=== PATIENT | female | born 1955 | race Caucasian/White ===

== ENCOUNTER 2023-06-30 13:45 | Outpatient (RCR) | payer MEDICARE, SELFPAY ==
--- NOTE | 2023-04-01 14:45 | PT.OIE ---
Current Diagnoses Lymphedema, not elsewhere classified (04/01/23) Visit Care Team Role Provider Type Teresa Espinoza MD Attending Provider Non-Staff Family Provider Primary Care Provider Referring Provider Specialty: Family Practice Address: [address] [place] [address], [phone] Fax: Email: Physical Therapy Initial Evaluation PT-OP-A Visit Information Start: 03/31/23 16:36 Freq: Status: Active Protocol: Document 04/01/23 12:33 [facility] (Rec: 04/01/23 14:01 [facility] [id number]) Out-Patient Physical Therapy Visit Information Visit Information Visit Type Initial Evaluation Visit Start Time 12:31 Visit Stop Time 13:56 Total Visit Minutes 85 Visit Number 1 Evaluation Information Evaluation Date 04/01/23 Precautions Precautions history cancer osteoporosis PT-OP-B Current Condition Start: 03/31/23 16:36 Freq: Status: Active Protocol: Document 04/01/23 12:33 [facility] (Rec: 04/01/23 14:01 [facility] [id number]) Current Condition History of Current Condition Onset Date 2012 Current Complaints right leg lymphedema History of Current Condition Radical hysterectomy , 1 lymph removed, benign in 2012. . Lymphedema occurred pretty much right away but not initially addressed due to chem and radiation. Has been through treatment for lymphedema at [employer] [facility] that was helpful but has been worsening recently. Then went to accupuncture and that helped some as well. Reports back to work on feet more as well as stress and heat during the summer increased her swelling. Due to work schedule has difficulty attending PT sessions but verbalized understanding of how important to do all she can; states she and will follow- through with all PT recommendations and instruction. Feels she needs further PT and is interested in a lymphedema pump. Lymphedema minimal in am , worsens throughout the day. Wears thompson length shorts especially on work days. Heavier compressions not tolerated. Swelling is from knee to groin and lower abdominal area. Did not bring current compression garments and is not currently wearing any; patient reporting she wasn't going to work and she doesn't like to wear if doesn' t feel the need. Prior Treatments and Tests lymphedema treatment as noted above Treatment Goals Patient/Caregiver Goals be able to self-manage lymphedema, prevent complications. Prior Functional Status Baseline Function- ADL's Independent Baseline Function- Mobility Independent Baseline Function- Gait no limitations Baseline Function- Work/School indep Current Functional Impairments (Reported) Functional Limitations- ADL's more difficult with heavy leg Functional Limitations- Mobility/Gait leg becomes heavy and achy Functional Limitations- Work/School increased edema with work. Personal Factors Other Personal Factors That May Effect doesn't like to wear Therapy/Recovery compression PT-OP-C Subjective Start: 03/31/23 16:36 Freq: Status: Active Protocol: Document 04/01/23 12:33 [facility] (Rec: 04/08/23 14:45 [facility] [id number]) Patient Questionnaires Lymphedema Life Impact Score Lymphedema Score 26 OP-PT Pain Assessment Comments Pain Comments denies pain PT-OP-F Manual Assessment Start: 03/31/23 16:36 Freq: Status: Active Protocol: Document 04/01/23 12:33 [facility] (Rec: 04/08/23 14:45 [facility] [id number]) Manual Assessments Soft Tissue Assessment Soft Tissue Mobility Assessment no redness or other discoloration, no skin fibrosis PT-OP-J Posture/Palpation/Skin Start: 03/31/23 16:36 Freq: Status: Active Protocol: Document 04/01/23 12:33 [facility] (Rec: 04/01/23 14:01 [facility] [id number]) Palpation Assessment Location right LE Palpation Findings Edema Palpation Details no palpable fibrosis, no skin color changes or warmth. Skin Assessment Edema Assessment Right Leg Edema Appearance Puffy,Shiny Comments LYmphedema Incisional Assessment Incision Appearance/Comments old scar with fair mobility PT-OP-K Range of Motion Start: 03/31/23 16:36 Freq: Status: Active Protocol: Document 04/01/23 12:33 [facility] (Rec: 04/08/23 14:45 [facility] [id number]) Hip Goniometric Range of Motion Hip kip Hip ROM WFL Yes Knee Goniometric Range of Motion Knee kip Knee ROM WFL Yes PT-OP-N Lymphedema Start: 03/31/23 16:36 Freq: Status: Active Protocol: Document 04/01/23 12:33 [facility] (Rec: 04/01/23 14:01 [facility] [id number]) Lymphedema Measurements Lower Extremity Circumference Measurements Right Affected MT Heads 21 cm Mid-foot 21.3 cm Medial Malleolus 23.8 cm 10 cm From Medial Malleolus 22 cm 20 cm From Medial Malleolus 31.7 cm 30 cm From Medial Malleolus 31.3 cm 40 cm From Medial Malleolus 36.2 cm 50 cm From Medial Malleolus 39 cm 60 cm From Medial Malleolus 46.5 cm Knee Joint 36.2 cm Hip 54.5 cm - hip waist Left Unaffected MT Heads 21.8 cm Mid-foot 22.7 cm Medial Malleolus 23.3 cm 10 cm From Medial Malleolus 22 cm 20 cm From Medial Malleolus 31.2 cm 30 cm From Medial Malleolus 31.4 cm 40 cm From Medial Malleolus 34.4 cm 50 cm From Medial Malleolus 35.2 cm 60 cm From Medial Malleolus 43.5 cm 70 cm From Medial Malleolus 52 cm Knee Joint 34.4 cm Hip 54.1 cm PT-OP-Q Treatments Start: 03/31/23 16:36 Freq: Status: Active Protocol: Document 04/01/23 12:33 [facility] (Rec: 04/01/23 14:01 [facility] [id number]) Lymphedema Treatment Manual Lymphatic Drainage Location for right LE lymphedema Duration 15 Comments instructed using written handout Lymphedema Wrapping Other not indicated at this time Sequential Lymphedema Exercises Location instructed for right LE lymphedema Duration 10 Comments written handout issued Compression Garment Assessment Compression Garment Assessment Details Patient did not bring; instructed to bring all compression garments for evaluation next session; Patient Education Lymphedema Pathology educated using anatomy talent agent Lymphedema Prevention instructed Lymphedema Precautions instructed Compression Garments discussed and educated in options Self Manual Lymphatic Drainage instructed, with demo and patient return demo Sequential Lymphedema Exercises instructed and issued hadout. Other Other Initiated instructed in importance of all 4 components of lymphedema care; skin care , manual lymphatic drainage, compression, lymphedema exercise; given informational folder with written handouts of resources, self-massage, bandaging, exercise. PT-OP-T Assessment and Plan Start: 03/31/23 16:36 Freq: Status: Active Protocol: Document 04/01/23 12:33 [facility] (Rec: 04/01/23 14:01 [facility] [id number]) Physical Therapy Assessment Rehab Potential Rehabilitation Potential Good Evaluation Complexity Number of Personal Factors/Comorbidities 1-2 Number of Body Systems Impaired 3 Clinical Presentation at Evaluation Evolving Impairments Impairments Activity Tolerance,Edema Goals Three Impairment activity intolerance Impairment increase LE edema with standing for work Short Term Goal (STG) Patient to be instructed in self-management techniques to incorporate into her workday to prevent increase in lymphedema during work. STG Duration 05/07/23 Nursing Home Goal (LTG) Patient will be able to stand for full day of work with minimal to no increase in lymphedema LTG Duration 06/30/23 Two Impairment lymphedema life impact scale 22% [employer] Person Goal (LTG) Decrease lymphedema life impact scale to no more than 10% as measure of improved ability to self-manage lymphedema and improved quality of life LTG Duration 06/30/23 One Impairment lymphedema right LE Impairment worsens with standing and activity Short Term Goal (STG) Patient to be instructed in all aspects of lymphedema care to include skin care, self- manual lymphatic drainage, elevation, compression, and exercise. STG Duration 05/07/23 [employer] Person Goal (LTG) Patient lymphedema to stabilize (no increase or decrease greater than 1 cm over the course of 1 week), patient to demonstrate independence and compliance with all aspects of lymphedema care including consistent wearing of appropriate compression garments LTG Duration 06/30/23 Assessment Summary Assessment Patient presents to PT with diagnosis of lymphedema right LE s/p hysterectomy and removal of 1 lymph node due to cancer. Has had previous treatment for lymphedema but has had exacerbation with return to work and it was recommended she seek further care to improve her ability to self-manage and prevent potential complications of lymphedema and to potentially obtain a sequential pneumatic pump for use in the home. I feel patient would benefit highly from the use of a sequential pneumatic pump as a component of her self-care for lymphedema. Initiatated patient education today with patient and both expressing education provided was some new information for them and very helpful. Discussed POC and patient was in agreement. Due to her busy work schedule emphasis will be placed on education of and patient for self- care measures; they appear highly motivated. Physical Therapy Plan Frequency and Duration Frequency of Treatment 6 visits Duration of treatment (weeks) 12 Plan of Care Start Date 04/01/23 Plan of Care End Date 06/30/23 Therapeutic Interventions Therapeutic Interventions Home Exercise Program, Lymphedema Management,Manual Therapy,Patient/Caregiver Education,Self-Care/Home Management,Soft Tissue Mobilization,Taping, Therapeutic Activities, Therapeutic Exercises Modalities Vasopneumatic Devices Next Visit Focus/Plan Next Note Type Treatment Note Next Visit Plan REview lymphedema exercises, MLD, discuss compression and assess patient's current compression garments for fit and appropriateness, Provide MLD. Assist patient in donning appropriate compression and consider bandaging over or layering and problem-solve any donning issues.
--- NOTE | 2023-04-01 14:46 | PT.OPPOC ---
Physical, Occupational & Speech Therapy At [facility] Current Diagnoses Lymphedema, not elsewhere classified (04/01/23) Visit Care Team Role Provider Type Teresa Espinoza MD Attending Provider Non-Staff Family Provider Primary Care Provider Referring Provider Specialty: Family Practice Address: [address] [place] [address], [phone] Fax: Email: Plan Of Care PT-OP-T Assessment and Plan Start: 03/31/23 16:36 Freq: Status: Active Protocol: Document 04/01/23 12:33 [facility] (Rec: 04/01/23 14:01 [facility]AK [id number]) Physical Therapy Assessment Rehab Potential Rehabilitation Potential Good Evaluation Complexity Number of Personal Factors/Comorbidities 1-2 Number of Body Systems Impaired 3 Clinical Presentation at Evaluation Evolving Impairments Impairments Activity Tolerance,Edema Goals Three Impairment activity intolerance Impairment increase LE edema with standing for work Short Term Goal (STG) Patient to be instructed in self-management techniques to incorporate into her workday to prevent increase in lymphedema during work. STG Duration 05/07/23 [facility] Goal (LTG) Patient will be able to stand for full day of work with minimal to no increase in lymphedema LTG Duration 06/30/23 Two Impairment lymphedema life impact scale 22% [facility] Goal (LTG) Decrease lymphedema life impact scale to no more than 10% as measure of improved ability to self-manage lymphedema and improved quality of life LTG Duration 06/30/23 One Impairment lymphedema right LE Impairment worsens with standing and activity Short Term Goal (STG) Patient to be instructed in all aspects of lymphedema care to include skin care, self- manual lymphatic drainage, elevation, compression, and exercise. STG Duration 05/07/23 [facility] Goal (LTG) Patient lymphedema to stabilize (no increase or decrease greater than 1 cm over the course of 1 week), patient to demonstrate independence and compliance with all aspects of lymphedema care including consistent wearing of appropriate compression garments LTG Duration 06/30/23 Assessment Summary Assessment Patient presents to PT with diagnosis of lymphedema right LE s/p hysterectomy and removal of 1 lymph node due to cancer. Has had previous treatment for lymphedema but has had exacerbation with return to work and it was recommended she seek further care to improve her ability to self-manage and prevent potential complications of lymphedema and to potentially obtain a sequential pneumatic pump for use in the home. I feel patient would benefit highly from the use of a sequential pneumatic pump as a component of her self-care for lymphedema. Initiatated patient education today with patient and both expressing education provided was some new information for them and very helpful. Discussed POC and patient was in agreement. Due to her busy work schedule emphasis will be placed on education of and patient for self- care measures; they appear highly motivated. Physical Therapy Plan Frequency and Duration Frequency of Treatment 6 visits Duration of treatment (weeks) 12 Plan of Care Start Date 04/01/23 Plan of Care End Date 06/30/23 Therapeutic Interventions Therapeutic Interventions Home Exercise Program, Lymphedema Management,Manual Therapy,Patient/Caregiver Education,Self-Care/Home Management,Soft Tissue Mobilization,Taping, Therapeutic Activities, Therapeutic Exercises Modalities Vasopneumatic Devices Next Visit Focus/Plan Next Note Type Treatment Note Next Visit Plan REview lymphedema exercises, MLD, discuss compression and assess patient's current compression garments for fit and appropriateness, Provide MLD. Assist patient in donning appropriate compression and consider bandaging over or layering and problem-solve any donning issues. Plan of Care Dates Plan of Care Start Date 04/01/23 Plan of Care End Date 06/30/23 Electronically Signed by: Yaneli Bloom, PT 04/08/23 [id number] If you are in agreement with this Plan of Care, please return a signed and dated copy. I have reviewed this Plan of Care and certify that the skilled therapy services above are required to meet the patient?s needs. Physician Signature Date Printed Name and Credentials Clinical Instructor Signature Printed Name and Credentials
--- NOTE | 2023-04-09 16:10 | PT.OTN ---
Current Diagnoses Lymphedema, not elsewhere classified (04/09/23) Physical Therapy Treatment Note PT-OP-A Visit Information Start: 03/31/23 16:36 Freq: Status: Active Protocol: Document 04/09/23 12:35 [facility] (Rec: 04/09/23 14:02 [facility] [id number]) Out-Patient Physical Therapy Visit Information Visit Information Visit Type Treatment Note Visit Start Time 12:32 Visit Stop Time 14:00 Total Visit Minutes 58 Visit Number 2 Precautions Precautions history cancer osteoporosis PT-OP-B Current Condition Start: 03/31/23 16:36 Freq: Status: Active Protocol: Document 04/09/23 12:35 [facility] (Rec: 04/09/23 14:02 [facility] [id number]) Current Condition History of Current Condition Onset Date 2012 Current Complaints right leg lymphedema History of Current Condition Radical hysterectomy , 1 lymph removed, benign in 2012. . Lymphedema occurred pretty much right away but not initially addressed due to chem and radiation. Has been through treatment for lymphedema at [facility] that was helpful but has been worsening recently. Then went to accupuncture and that helped some as well. Reports back to work on feet more as well as stress and heat during the summer increased her swelling. Due to work schedule has difficulty attending PT sessions but verbalized understanding of how important to do all she can; states she and will follow- through with all PT recommendations and instruction. Feels she needs further PT and is interested in a lymphedema pump. Lymphedema minimal in am , worsens throughout the day. Wears thompson length shorts especially on work days. Heavier compressions not tolerated. Swelling is from knee to groin and lower abdominal area. Did not bring current compression garments and is not currently wearing any; patient reporting she wasn't going to work and she doesn't like to wear if doesn' t feel the need. Prior Treatments and Tests lymphedema treatment as noted above PT-OP-C Subjective Start: 03/31/23 16:36 Freq: Status: Active Protocol: Document 04/09/23 12:35 [facility] (Rec: 04/09/23 16:10 [facility] [id number]) OP-PT Subjective Patient Comments Patient Comments no new c/o. Didn't look yet at options for compression. Has been doing elevation, skin care, sequential lymphedema exercises, and MLD as instructed. PT-OP-F Manual Assessment Start: 03/31/23 16:36 Freq: Status: Active Protocol: Document 04/01/23 12:33 [facility] (Rec: 04/08/23 14:45 [facility] [id number]) Manual Assessments Soft Tissue Assessment Soft Tissue Mobility Assessment no redness or other discoloration, no skin fibrosis PT-OP-J Posture/Palpation/Skin Start: 03/31/23 16:36 Freq: Status: Active Protocol: Document 04/01/23 12:33 [facility] (Rec: 04/01/23 14:01 [facility] [id number]) Palpation Assessment Location right LE Palpation Findings Edema Palpation Details no palpable fibrosis, no skin color changes or warmth. Skin Assessment Edema Assessment Right Leg Edema Appearance Puffy,Shiny Comments LYmphedema Incisional Assessment Incision Appearance/Comments old scar with fair mobility PT-OP-K Range of Motion Start: 03/31/23 16:36 Freq: Status: Active Protocol: Document 04/01/23 12:33 [facility] (Rec: 04/08/23 14:45 [facility] [id number]) Hip Goniometric Range of Motion Hip kip Hip ROM WFL Yes Knee Goniometric Range of Motion Knee kip Knee ROM WFL Yes PT-OP-N Lymphedema Start: 03/31/23 16:36 Freq: Status: Active Protocol: Document 04/09/23 12:35 [facility] (Rec: 04/09/23 14:02 [facility] [id number]) Lymphedema Measurements Lower Extremity Circumference Measurements Right Affected MT Heads 21.6 cm Mid-foot 20.9 cm Medial Malleolus 25.9 cm 10 cm From Medial Malleolus 22.4 cm 20 cm From Medial Malleolus 31.6 cm 30 cm From Medial Malleolus 31.9 cm 40 cm From Medial Malleolus 36.4 cm 50 cm From Medial Malleolus 39 cm 60 cm From Medial Malleolus 45.8 cm 70 cm From Medial Malleolus 51.9 cm Left Unaffected MT Heads 21.7 cm Mid-foot 22.6 cm Medial Malleolus 24.6 cm 10 cm From Medial Malleolus 22 cm 20 cm From Medial Malleolus 31.4 cm 30 cm From Medial Malleolus 33 cm 40 cm From Medial Malleolus 34.8 cm 50 cm From Medial Malleolus 35 cm 60 cm From Medial Malleolus 41.5 cm 70 cm From Medial Malleolus 51.3 cm Knee Joint 34.8 cm - hips 92.2 waist 78.1 PT-OP-Q Treatments Start: 03/31/23 16:36 Freq: Status: Active Protocol: Document 04/09/23 12:35 [facility] (Rec: 04/09/23 16:10 [facility] [id number]) Lymphedema Treatment Manual Lymphatic Drainage Location for right LE lymphedema; proximal groin, trunk, subaxillary, supraclavicula Duration 30 Comments proximal for right LE lymphedema during sequential pneumatic pump Lymphedema Wrapping Body Location right LE Materials compression shorts; Jockey Sequential Lymphedema Exercises Location reviewed Compression Garment Assessment Compression Garment Assessment Details shown options on lymphedemaproducts website, discussed layering, levels of compression, different options for different times of year. Patient Education Lymphedema Pathology prevfiously revfiewd Lymphedema Prevention issued written information Lymphedema Precautions issued written information Compression Garments continued education Self Manual Lymphatic Drainage reviewd Sequential Lymphedema Exercises reviewed PT-OP-T Assessment and Plan Start: 03/31/23 16:36 Freq: Status: Active Protocol: Document 04/09/23 12:35 [facility] (Rec: 04/09/23 14:02 [facility] [id number]) Physical Therapy Assessment Goals Three Impairment activity intolerance Impairment increase LE edema with standing for work Short Term Goal (STG) Patient to be instructed in self-management techniques to incorporate into her workday to prevent increase in lymphedema during work. STG Duration 05/07/23 Custodial Goal (LTG) Patient will be able to stand for full day of work with minimal to no increase in lymphedema LTG Duration 06/30/23 Two Impairment lymphedema life impact scale 22% Custodial Goal (LTG) Decrease lymphedema life impact scale to no more than 10% as measure of improved ability to self-manage lymphedema and improved quality of life LTG Duration 06/30/23 One Impairment lymphedema right LE Impairment worsens with standing and activity Short Term Goal (STG) Patient to be instructed in all aspects of lymphedema care to include skin care, self- manual lymphatic drainage, elevation, compression, and exercise. STG Duration 05/07/23 [facility]ustodial Goal (LTG) Patient lymphedema to stabilize (no increase or decrease greater than 1 cm over the course of 1 week), patient to demonstrate independence and compliance with all aspects of lymphedema care including consistent wearing of appropriate compression garments LTG Duration 06/30/23 Assessment Summary Assessment Patient and both present for session, brought current compression garments for assessment; poor tolerance for Juzo short, better deja for Alka lower compression short though reports beneficial. Discussed possible layering of compression garments, but also that the best compression is the one she can tolerate wearing. Shown website for options of compression garments, discussed options. Trial sequential pneumatic pump with good tolerance and benefit with dec in circumferential measurements. Physical Therapy Plan Frequency and Duration Frequency of Treatment 6 visits Duration of treatment (weeks) 12 Plan of Care Start Date 04/01/23 Plan of Care End Date 06/30/23 Therapeutic Interventions Therapeutic Interventions Home Exercise Program, Lymphedema Management,Manual Therapy,Patient/Caregiver Education,Self-Care/Home Management,Soft Tissue Mobilization,Taping, Therapeutic Activities, Therapeutic Exercises Modalities Vasopneumatic Devices Next Visit Focus/Plan Next Note Type Treatment Note Next Visit Plan REview lymphedema exercises, MLD, discuss compression and assess patient's current compression garments for fit and appropriateness, Provide MLD. Assist patient in donning appropriate compression and consider bandaging over or layering and problem-solve any donning issues.
--- NOTE | 2023-04-15 16:09 | PT.OTN ---
Current Diagnoses Lymphedema, not elsewhere classified (04/15/23) Physical Therapy Treatment Note PT-OP-A Visit Information Start: 03/31/23 16:36 Freq: Status: Active Protocol: Document 04/15/23 12:31 [facility] (Rec: 04/15/23 12:54 [facility] [id number]) Out-Patient Physical Therapy Visit Information Visit Information Visit Type Treatment Note Visit Start Time 12:32 Visit Stop Time 14:00 Total Visit Minutes 88 Visit Number 3 Evaluation Information Evaluation Date 04/01/23 Precautions Precautions history cancer osteoporosis PT-OP-B Current Condition Start: 03/31/23 16:36 Freq: Status: Active Protocol: Document 04/15/23 12:31 [facility] (Rec: 04/15/23 12:54 [facility] [id number]) Current Condition History of Current Condition Onset Date 2012 Current Complaints right leg lymphedema History of Current Condition Radical hysterectomy , 1 lymph removed, benign in 2012. . Lymphedema occurred pretty much right away but not initially addressed due to chem and radiation. Has been through treatment for lymphedema at [facility] that was helpful but has been worsening recently. Then went to accupuncture and that helped some as well. Reports back to work on feet more as well as stress and heat during the summer increased her swelling. Due to work schedule has difficulty attending PT sessions but verbalized understanding of how important to do all she can; states she and will follow- through with all PT recommendations and instruction. Feels she needs further PT and is interested in a lymphedema pump. Lymphedema minimal in am , worsens throughout the day. Wears thompson length shorts especially on work days. Heavier compressions not tolerated. Swelling is from knee to groin and lower abdominal area. Did not bring current compression garments and is not currently wearing any; patient reporting she wasn't going to work and she doesn't like to wear if doesn' t feel the need. Prior Treatments and Tests lymphedema treatment as noted above Treatment Goals Patient/Caregiver Goals be able to self-manage lymphedema, prevent complications. Prior Functional Status Baseline Function- ADL's Independent Baseline Function- Mobility Independent Baseline Function- Gait no limitations Baseline Function- Work/School indep PT-OP-C Subjective Start: 03/31/23 16:36 Freq: Status: Active Protocol: Document 04/15/23 12:31 [facility] (Rec: 04/15/23 12:54 [facility] [id number]) OP-PT Subjective Patient Comments Patient Comments No new c/o. PT-OP-F Manual Assessment Start: 03/31/23 16:36 Freq: Status: Active Protocol: Document 04/01/23 12:33 [facility] (Rec: 04/08/23 14:45 [facility] [id number]) Manual Assessments Soft Tissue Assessment Soft Tissue Mobility Assessment no redness or other discoloration, no skin fibrosis PT-OP-J Posture/Palpation/Skin Start: 03/31/23 16:36 Freq: Status: Active Protocol: Document 04/01/23 12:33 [facility] (Rec: 04/01/23 14:01 [facility] [id number]) Palpation Assessment Location right LE Palpation Findings Edema Palpation Details no palpable fibrosis, no skin color changes or warmth. Skin Assessment Edema Assessment Right Leg Edema Appearance Puffy,Shiny Comments LYmphedema Incisional Assessment Incision Appearance/Comments old scar with fair mobility PT-OP-K Range of Motion Start: 03/31/23 16:36 Freq: Status: Active Protocol: Document 04/01/23 12:33 [facility] (Rec: 04/08/23 14:45 [facility] [id number]) Hip Goniometric Range of Motion Hip kip Hip ROM WFL Yes Knee Goniometric Range of Motion Knee kip Knee ROM WFL Yes PT-OP-N Lymphedema Start: 03/31/23 16:36 Freq: Status: Active Protocol: Document 04/15/23 12:31 [facility] (Rec: 04/15/23 12:54 [facility] [id number]) Lymphedema Measurements Lower Extremity Circumference Measurements Right Affected MT Heads 21 cm Mid-foot 20.5 cm Medial Malleolus 24 cm 10 cm From Medial Malleolus 21.6 cm 20 cm From Medial Malleolus 31.2 cm 30 cm From Medial Malleolus 32.2 cm 40 cm From Medial Malleolus 35.8 cm 50 cm From Medial Malleolus 38.7 cm 60 cm From Medial Malleolus 46.7 cm 70 cm From Medial Malleolus 53.2 cm Knee Joint 35.8 cm Hip 56 cm PT-OP-Q Treatments Start: 03/31/23 16:36 Freq: Status: Active Protocol: Document 04/15/23 12:31 [facility] (Rec: 04/15/23 12:54 [facility] [id number]) Lymphedema Treatment Manual Lymphatic Drainage Location for right LE lymphedema; proximal groin, trunk, subaxillary, supraclavicula Duration 30 Comments proximal for right LE lymphedema during sequential pneumatic pump Lymphedema Wrapping Body Location right LE Materials compression faustos; [place] Patient Education Other viewed LE bandaging video from [facility] together, discussed benefits and need to instruct and do trial. Patient and asked good questions, appeared to understand the need for having all skills to self-manage lymphedema in the home and prevent worsening. Agreed to bandaging instruction next session PT-OP-T Assessment and Plan Start: 03/31/23 16:36 Freq: Status: Active Protocol: Document 04/15/23 12:31 [facility] (Rec: 04/15/23 12:54 [facility] [id number]) Physical Therapy Assessment Goals Three Impairment activity intolerance Impairment increase LE edema with standing for work Short Term Goal (STG) Patient to be instructed in self-management techniques to incorporate into her workday to prevent increase in lymphedema during work. STG Duration 05/07/23 [employer] Goal (LTG) Patient will be able to stand for full day of work with minimal to no increase in lymphedema LTG Duration 06/30/23 Two Impairment lymphedema life impact scale 22% [facility] Goal (LTG) Decrease lymphedema life impact scale to no more than 10% as measure of improved ability to self-manage lymphedema and improved quality of life LTG Duration 06/30/23 One Impairment lymphedema right LE Impairment worsens with standing and activity Short Term Goal (STG) Patient to be instructed in all aspects of lymphedema care to include skin care, self- manual lymphatic drainage, elevation, compression, and exercise. STG Duration 05/07/23 [facility] Goal (LTG) Patient lymphedema to stabilize (no increase or decrease greater than 1 cm over the course of 1 week), patient to demonstrate independence and compliance with all aspects of lymphedema care including consistent wearing of appropriate compression garments LTG Duration 06/30/23 Assessment Summary Assessment Patient did not bring or wear compression today, further instruction in importance of wearing even if doesn't feel like it's a bad day of swelling; stressed how easily lymphedema can worsen and need for consistent wearing of compression. Discussed other compression options, shown online, shown night garment, given swell spot for trial use over the weekend. Decrease circumferential measurements after use of sequential pneumatic pump after proximal MLD prep, Patient education during pump. Physical Therapy Plan Frequency and Duration Frequency of Treatment 6 visits Duration of treatment (weeks) 12 Plan of Care Start Date 04/01/23 Plan of Care End Date 06/30/23 Therapeutic Interventions Therapeutic Interventions Home Exercise Program, Lymphedema Management,Manual Therapy,Patient/Caregiver Education,Self-Care/Home Management,Soft Tissue Mobilization,Taping, Therapeutic Activities, Therapeutic Exercises Modalities Vasopneumatic Devices Next Visit Focus/Plan Next Note Type Treatment Note Next Visit Plan instruct in LE bandaging, continue MLD, use of sequential pneumatic pump, assure compliance with wearing compression or bandaging.
--- NOTE | 2023-05-06 13:13 | PT.OTN ---
Current Diagnoses Lymphedema, not elsewhere classified (05/06/23) Physical Therapy Treatment Note PT-OP-A Visit Information Start: 03/31/23 16:36 Freq: Status: Active Protocol: Document 05/06/23 12:29 [facility] (Rec: 05/06/23 13:13 [facility] [id number]) Out-Patient Physical Therapy Visit Information Visit Information Visit Type Treatment Note Visit Start Time 12:30 Visit Stop Time 14:00 Total Visit Minutes 90 Visit Number 5 Evaluation Information Evaluation Date 04/01/23 Precautions Precautions history cancer osteoporosis PT-OP-B Current Condition Start: 03/31/23 16:36 Freq: Status: Active Protocol: Document 05/06/23 12:29 [facility] (Rec: 05/06/23 13:13 [facility] [id number]) Current Condition History of Current Condition Onset Date 2012 Current Complaints right leg lymphedema History of Current Condition Radical hysterectomy , 1 lymph removed, benign in 2012. . Lymphedema occurred pretty much right away but not initially addressed due to chem and radiation. Has been through treatment for lymphedema at [email or web address] and [facility] that was helpful but has been worsening recently. Then went to accupuncture and that helped some as well. Reports back to work on feet more as well as stress and heat during the summer increased her swelling. Due to work schedule has difficulty attending PT sessions but verbalized understanding of how important to do all she can; states she and will follow- through with all PT recommendations and instruction. Feels she needs further PT and is interested in a lymphedema pump. Lymphedema minimal in am , worsens throughout the day. Wears thompson length shorts especially on work days. Heavier compressions not tolerated. Swelling is from knee to groin and lower abdominal area. Did not bring current compression garments and is not currently wearing any; patient reporting she wasn't going to work and she doesn't like to wear if doesn' t feel the need. Prior Treatments and Tests lymphedema treatment as noted above Treatment Goals Patient/Caregiver Goals be able to self-manage lymphedema, prevent complications. Prior Functional Status Baseline Function- ADL's Independent Baseline Function- Mobility Independent Baseline Function- Gait no limitations Baseline Function- Work/School indep PT-OP-C Subjective Start: 03/31/23 16:36 Freq: Status: Active Protocol: Document 05/06/23 12:29 [facility] (Rec: 05/06/23 13:13 [facility] [id number]) OP-PT Subjective Patient Comments Patient Comments Patient reports wearing her compression shorts daily and has ordered new Juzo bike shorts, not here yet. Wearing compression bandaging at night. Has been elevating , doing MLD, doing exercises, and wearing compression consistently. Compliant to skin care as well with low ph lotion. Still having challenges with keeping lymphedema down. Only kinesiotape was helpful, had a lot of difficulty removing the tape and skin was irritated, doesn't feel she wants to do again due to skin irritation. Very interested in obtaining sequential pneumatic pump to assist with the home management, sees good results with MLD and use of pump in PT. PT-OP-F Manual Assessment Start: 03/31/23 16:36 Freq: Status: Active Protocol: Document 04/01/23 12:33 [facility] (Rec: 04/08/23 14:45 [facility] [id number]) Manual Assessments Soft Tissue Assessment Soft Tissue Mobility Assessment no redness or other discoloration, no skin fibrosis PT-OP-J Posture/Palpation/Skin Start: 03/31/23 16:36 Freq: Status: Active Protocol: Document 04/01/23 12:33 [facility] (Rec: 04/01/23 14:01 [facility] [id number]) Palpation Assessment Location right LE Palpation Findings Edema Palpation Details no palpable fibrosis, no skin color changes or warmth. Skin Assessment Edema Assessment Right Leg Edema Appearance Puffy,Shiny Comments LYmphedema Incisional Assessment Incision Appearance/Comments old scar with fair mobility PT-OP-K Range of Motion Start: 03/31/23 16:36 Freq: Status: Active Protocol: Document 04/01/23 12:33 [facility] (Rec: 04/08/23 14:45 [facility] [id number]) Hip Goniometric Range of Motion Hip kip Hip ROM WFL Yes Knee Goniometric Range of Motion Knee kip Knee ROM WFL Yes PT-OP-N Lymphedema Start: 03/31/23 16:36 Freq: Status: Active Protocol: Document 05/06/23 12:29 [facility] (Rec: 05/06/23 13:13 [facility] [id number]) Lymphedema Measurements Lower Extremity Circumference Measurements Right Affected MT Heads 21 cm Mid-foot 20 cm Medial Malleolus 23 cm 10 cm From Medial Malleolus 22.3 cm 20 cm From Medial Malleolus 31.3 cm 30 cm From Medial Malleolus 31.8 cm 40 cm From Medial Malleolus 35.3 cm 50 cm From Medial Malleolus 38.9 cm 60 cm From Medial Malleolus 46.6 cm 70 cm From Medial Malleolus 53.8 cm Knee Joint 35.3 cm Hip 59.3 cm PT-OP-Q Treatments Start: 03/31/23 16:36 Freq: Status: Active Protocol: Document 05/06/23 12:29 [facility] (Rec: 05/06/23 13:13 [facility] [id number]) Lymphedema Treatment Manual Lymphatic Drainage Location for right LE lymphedema; proximal groin, trunk, subaxillary, supraclavicula Duration 30 Comments proximal for right LE lymphedema during sequential pneumatic pump Lymphedema Wrapping Body Location right LE Materials Artiflex, Com[employer] knee to groin, instructed patient and ; review with patient and Sequential Lymphedema Exercises Location HEP Patient Education Lymphedema Prevention review Lymphedema Precautions review Compression Garments review Self Manual Lymphatic Drainage review Sequential Lymphedema Exercises review PT-OP-T Assessment and Plan Start: 03/31/23 16:36 Freq: Status: Active Protocol: Document 05/06/23 12:29 [facility] (Rec: 05/06/23 13:13 [facility] [id number]) Physical Therapy Assessment Goals Three Impairment activity intolerance Impairment increase LE edema with standing for work Short Term Goal (STG) Patient to be instructed in self-management techniques to incorporate into her workday to prevent increase in lymphedema during work. STG Duration goal met Half-Way Goal (LTG) Patient will be able to stand for full day of work with minimal to no increase in lymphedema 05/06/23: partially met; still some increase by the end of work day or after doing household tasks while on feet. LTG Duration 06/30/23 Two Impairment lymphedema life impact scale 22% Half-Way Goal (LTG) Decrease lymphedema life impact scale to no more than 10% as measure of improved ability to self-manage lymphedema and improved quality of life 05/06/23: good goal progress, decreased to 14% LTG Duration 06/30/23 One Impairment lymphedema right LE Impairment worsens with standing and activity Short Term Goal (STG) Patient to be instructed in all aspects of lymphedema care to include skin care, self- manual lymphatic drainage, elevation, compression, and exercise. 05/06/23: goal met STG Duration 05/07/23 Half-Way Goal (LTG) Patient lymphedema to stabilize (no increase or decrease greater than 1 cm over the course of 1 week), patient to demonstrate independence and compliance with all aspects of lymphedema care including consistent wearing of appropriate compression garments 05/06/23 05/06/23: good goal progress; patient highly compliant with all aspects of lymphedema management. Has ordered new compression bike shorts LTG Duration 06/30/23 Assessment Summary Assessment Patient has been seen for over 30 days of conservative treatment for right LE lymphedema with onset after radical hysterectomy due to cancer. Patient highly compliant to all aspects of lymphedema care with the assistance of her . Compliant to skin care, manual lymphatic drainage, lymphedema exercises, elevation, wearing compression garment during day and bandaging at night Despite her compliance continues to have challenges with managing her lymphedema in her right LE . Feel she would benefit highy from the use of a sequential pneumatic pump to assist with home management and prevent complications such as Physical Therapy Plan Frequency and Duration Frequency of Treatment 6 visits Duration of treatment (weeks) 12 Plan of Care Start Date 04/01/23 Plan of Care End Date 06/30/23 Therapeutic Interventions Therapeutic Interventions Home Exercise Program, Lymphedema Management,Manual Therapy,Patient/Caregiver Education,Self-Care/Home Management,Soft Tissue Mobilization,Taping, Therapeutic Activities, Therapeutic Exercises Modalities Vasopneumatic Devices Next Visit Focus/Plan Next Note Type Treatment Note Next Visit Plan Continue CDT. Fill out paperwork to request sequential pneumatic pump.
--- NOTE | 2023-05-20 16:34 | PT.OTRE ---
Current Diagnoses Lymphedema, not elsewhere classified (05/20/23) Visit Care Team Role Provider Type Teresa Espinoza MD Attending Provider Non-Staff Family Provider Primary Care Provider Referring Provider Specialty: Family Practice Address: [address] [place] [address], [id number] Fax: Email: Physical Therapy Re-Evaluation PT-OP-A Visit Information Start: 03/31/23 16:36 Freq: Status: Active Protocol: Document 05/20/23 14:34 [facility] (Rec: 05/20/23 15:15 [facility] [id number]) Out-Patient Physical Therapy Visit Information Visit Information Visit Type Treatment Note Visit Start Time 14:35 Visit Stop Time 16:00 Total Visit Minutes 85 Visit Number 6 Evaluation Information Evaluation Date 04/01/23 Precautions Precautions history cancer osteoporosis PT-OP-B Current Condition Start: 03/31/23 16:36 Freq: Status: Active Protocol: Document 05/20/23 14:34 [facility] (Rec: 05/20/23 15:15 [facility] [id number]) Current Condition History of Current Condition Onset Date 2012 Current Complaints right leg lymphedema History of Current Condition Radical hysterectomy , 1 lymph removed, benign in 2012. . Lymphedema occurred pretty much right away but not initially addressed due to chem and radiation. Has been through treatment for lymphedema at [facility] that was helpful but has been worsening recently. Then went to accupuncture and that helped some as well. Reports back to work on feet more as well as stress and heat during the summer increased her swelling. Due to work schedule has difficulty attending PT sessions but verbalized understanding of how important to do all she can; states she and will follow- through with all PT recommendations and instruction. Feels she needs further PT and is interested in a lymphedema pump. Lymphedema minimal in am , worsens throughout the day. Wears thompson length shorts especially on work days. Heavier compressions not tolerated. Swelling is from knee to groin and lower abdominal area. Did not bring current compression garments and is not currently wearing any; patient reporting she wasn't going to work and she doesn't like to wear if doesn' t feel the need. Prior Treatments and Tests lymphedema treatment as noted above PT-OP-C Subjective Start: 03/31/23 16:36 Freq: Status: Active Protocol: Document 05/20/23 14:34 [facility] (Rec: 05/20/23 15:15 [facility] [id number]) OP-PT Subjective Patient Comments Patient Comments Got Juzo compression shorts 20 -30 mm Hg , wore for the first time yesterday, very difficult donning and increased swelling in right leg. REmoved as soon as home from work, after eating dinner lay down and did MLD. Didn't wear any further compression or do bandaging. PT-OP-F Manual Assessment Start: 03/31/23 16:36 Freq: Status: Active Protocol: Document 04/01/23 12:33 [facility] (Rec: 04/08/23 14:45 [facility] [id number]) Manual Assessments Soft Tissue Assessment Soft Tissue Mobility Assessment no redness or other discoloration, no skin fibrosis PT-OP-J Posture/Palpation/Skin Start: 03/31/23 16:36 Freq: Status: Active Protocol: Document 04/01/23 12:33 [facility] (Rec: 04/01/23 14:01 [facility] [id number]) Palpation Assessment Location right LE Palpation Findings Edema Palpation Details no palpable fibrosis, no skin color changes or warmth. Skin Assessment Edema Assessment Right Leg Edema Appearance Puffy,Shiny Comments LYmphedema Incisional Assessment Incision Appearance/Comments old scar with fair mobility PT-OP-K Range of Motion Start: 03/31/23 16:36 Freq: Status: Active Protocol: Document 04/01/23 12:33 [facility] (Rec: 04/08/23 14:45 [facility] [id number]) Hip Goniometric Range of Motion Hip Measured in Degrees kip Hip ROM WFL Yes Knee Goniometric Range of Motion Knee Measured in Degrees kip Knee ROM WFL Yes PT-OP-N Lymphedema Start: 03/31/23 16:36 Freq: Status: Active Protocol: Document 05/20/23 14:34 [facility] (Rec: 05/20/23 15:15 [facility] [id number]) Lymphedema Measurements Lower Extremity Circumference Measurements Right Affected MT Heads 21 cm Mid-foot 20.4 cm Medial Malleolus 23.9 cm 10 cm From Medial Malleolus 22.6 cm 20 cm From Medial Malleolus 31.7 cm 30 cm From Medial Malleolus 31.2 cm 40 cm From Medial Malleolus 36.8 cm 50 cm From Medial Malleolus 39.8 cm 60 cm From Medial Malleolus 47.2 cm 70 cm From Medial Malleolus 53.8 cm Knee Joint 36.2 cm Hip 59.3 cm PT-OP-Q Treatments Start: 03/31/23 16:36 Freq: Status: Active Protocol: Document 05/20/23 14:34 [facility] (Rec: 05/20/23 15:15 [facility] [id number]) Lymphedema Treatment Manual Lymphatic Drainage Location for right LE lymphedema; proximal groin, trunk, subaxillary, supraclavicula Duration 30 Comments proximal for right LE lymphedema during sequential pneumatic pump Lymphedema Wrapping Body Location compression shorts (Jockey) Materials Artiflex, Comprilan knee to groin, instructed patient and ; review with patient and Sequential Lymphedema Exercises Location HEP Other Other Extensive discussion of need for consistent compression, and consider layering options and other garment types including pantyhose, thompson length, shorts with pantyhose, different level of compression for comfort. When experiences exacerbation recommend bandaging for at least 24 hrs, use of pump when receives. Looked at compression options online with patient with good discussion with patient and her regarding options, including going [facility] [place] [facility]. Discussion of compression pump and PT and patient agree pants are best option for LE and trunk compression. PT-OP-T Assessment and Plan Start: 03/31/23 16:36 Freq: Status: Active Protocol: Document 05/20/23 14:34 [facility] (Rec: 05/20/23 15:15 [facility] [id number]) Physical Therapy Assessment Goals Three Impairment activity intolerance Impairment increase LE edema with standing for work Short Term Goal (STG) Patient to be instructed in self-management techniques to incorporate into her workday to prevent increase in lymphedema during work. STG Duration goal met Owner Goal (LTG) Patient will be able to stand for full day of work with minimal to no increase in lymphedema 05/06/23: partially met; still some increase by the end of work day or after doing household tasks while on feet. 05/20/23: goal partially met, new compression garment did not fit well and will be consulting with company after discussion with PT today regarding further alternatives LTG Duration 06/30/23 Two Impairment lymphedema life impact scale 22% Residential Goal (LTG) Decrease lymphedema life impact scale to no more than 10% as measure of improved ability to self-manage lymphedema and improved quality of life 05/06/23: good goal progress, decreased to 14% 05/20/23: 15% today LTG Duration 06/30/23 One Impairment lymphedema right LE Impairment worsens with standing and activity Short Term Goal (STG) Patient to be instructed in all aspects of lymphedema care to include skin care, self- manual lymphatic drainage, elevation, compression, and exercise. 05/06/23: goal met STG Duration goal met Owner Goal (LTG) Patient lymphedema to stabilize (no increase or decrease greater than 1 cm over the course of 1 week), patient to demonstrate independence and compliance with all aspects of lymphedema care including consistent wearing of appropriate compression garments 05/06/23 05/06/23: good goal progress; patient highly compliant with all aspects of lymphedema management. Has ordered new compression bike shorts 05/20/23: partially met. new compression bike shorts did not fit well and inc her edema . Discussed other options including consulting with company. SHown compression options online and encouraged to go to certified fitter vs ordering online. LTG Duration 06/30/23 Progress Towards Goals Progress Towards Goals Progressing Toward Goals Assessment Summary Assessment Additional measurements taken due to decision to request compression pants instead of leg sleeve so she can receive abdominal compression as well leg compression for better clearing. Patient circumferential measurements increased today after wearing ill fitting Juzo compression bike short yesterday, encouraged return, consider other option for compression; extensive discussion with patient and her today regarding compression options and consider going to certified fitter in [place]. Patient instructed to bandage LE if exacerbation occurrs as did today. REcommend 1 additional PT visit when compression pump delievered for patient education. Physical Therapy Plan Frequency and Duration Frequency of Treatment 1 visit Duration of treatment (weeks) 4 Plan of Care Start Date 05/20/23 Plan of Care End Date 06/20/23 Therapeutic Interventions Therapeutic Interventions Patient/Caregiver Education, Self-Care/Home Management Modalities Vasopneumatic Devices Next Visit Focus/Plan Next Note Type Treatment Note Next Visit Plan Train patient in donning, doffing, and safe use of sequential pneumatic pump when arrives.
--- NOTE | 2023-05-20 16:35 | PT.OPPOC ---
Physical, Occupational & Speech Therapy At [facility] Current Diagnoses Lymphedema, not elsewhere classified (05/20/23) Visit Care Team Role Provider Type Teresa Espinoza MD Attending Provider Non-Staff Family Provider Primary Care Provider Referring Provider Specialty: Family Practice Address: [address] [place] [address], [phone] Fax: Email: Plan Of Care PT-OP-T Assessment and Plan Start: 03/31/23 16:36 Freq: Status: Active Protocol: Document 05/20/23 14:34 [facility] (Rec: 05/20/23 15:15 [facility] [id number]) Physical Therapy Assessment Goals Three Impairment activity intolerance Impairment increase LE edema with standing for work Short Term Goal (STG) Patient to be instructed in self-management techniques to incorporate into her workday to prevent increase in lymphedema during work. STG Duration goal met Fpc Goal (LTG) Patient will be able to stand for full day of work with minimal to no increase in lymphedema 05/06/23: partially met; still some increase by the end of work day or after doing household tasks while on feet. 05/20/23: goal partially met, new compression garment did not fit well and will be consulting with company after discussion with PT today regarding further alternatives LTG Duration 06/30/23 Two Impairment lymphedema life impact scale 22% Fpc Goal (LTG) Decrease lymphedema life impact scale to no more than 10% as measure of improved ability to self-manage lymphedema and improved quality of life 05/06/23: good goal progress, decreased to 14% 05/20/23: 15% today LTG Duration 06/30/23 One Impairment lymphedema right LE Impairment worsens with standing and activity Short Term Goal (STG) Patient to be instructed in all aspects of lymphedema care to include skin care, self- manual lymphatic drainage, elevation, compression, and exercise. 05/06/23: goal met STG Duration goal met Mini Shifter Goal (LTG) Patient lymphedema to stabilize (no increase or decrease greater than 1 cm over the course of 1 week), patient to demonstrate independence and compliance with all aspects of lymphedema care including consistent wearing of appropriate compression garments 05/06/23 05/06/23: good goal progress; patient highly compliant with all aspects of lymphedema management. Has ordered new compression bike shorts 05/20/23: partially met. new compression bike shorts did not fit well and inc her edema . Discussed other options including consulting with company. SHown compression options online and encouraged to go to certified fitter vs ordering online. LTG Duration 06/30/23 Progress Towards Goals Progress Towards Goals Progressing Toward Goals Assessment Summary Assessment Additional measurements taken due to decision to request compression pants instead of leg sleeve so she can receive abdominal compression as well leg compression for better clearing. Patient circumferential measurements increased today after wearing ill fitting Juzo compression bike short yesterday, encouraged return, consider other option for compression; extensive discussion with patient and her today regarding compression options and consider going to certified fitter in [place]. Patient instructed to bandage LE if exacerbation occurrs as did today. REcommend 1 additional PT visit when compression pump delievered for patient education. Physical Therapy Plan Frequency and Duration Frequency of Treatment 1 visit Duration of treatment (weeks) 4 Plan of Care Start Date 05/20/23 Plan of Care End Date 06/20/23 Therapeutic Interventions Therapeutic Interventions Patient/Caregiver Education, Self-Care/Home Management Modalities Vasopneumatic Devices Next Visit Focus/Plan Next Note Type Treatment Note Next Visit Plan Train patient in donning, doffing, and safe use of sequential pneumatic pump when arrives. Plan of Care Dates Plan of Care Start Date 05/20/23 Plan of Care End Date 06/20/23 Electronically Signed by: Yaneli Bloom, PT 05/20/23 2426 If you are in agreement with this Plan of Care, please return a signed and dated copy. I have reviewed this Plan of Care and certify that the skilled therapy services above are required to meet the patient?s needs. Physician Signature Date Printed Name and Credentials Clinical Instructor Signature Printed Name and Credentials
--- NOTE | 2023-07-01 11:53 | PT.OPPOC ---
Physical, Occupational & Speech Therapy At [facility] Current Diagnoses Lymphedema, not elsewhere classified (06/30/23) Visit Care Team Role Provider Type Teresa Espinoza MD Attending Provider Non-Staff Family Provider Primary Care Provider Referring Provider Specialty: Family Practice Address: [address] [place] [address], [phone] Fax: Email: Plan Of Care PT-OP-T Assessment and Plan Start: 03/31/23 16:36 Freq: Status: Active Protocol: Document 06/30/23 13:49 [facility] (Rec: 06/30/23 14:33 [facility] [id number]) Physical Therapy Assessment Goals Three Impairment activity intolerance Impairment increase LE edema with standing for work Short Term Goal (STG) Patient to be instructed in self-management techniques to incorporate into her workday to prevent increase in lymphedema during work. STG Duration goal met Usp Goal (LTG) Patient will be able to stand for full day of work with minimal to no increase in lymphedema 05/06/23: partially met; still some increase by the end of work day or after doing household tasks while on feet. 05/20/23: goal partially met, new compression garment did not fit well and will be consulting with company after discussion with PT today regarding further alternatives LTG Duration goal met Two Impairment lymphedema life impact scale 22% Dexigraph Operator Goal (LTG) Decrease lymphedema life impact scale to no more than 10% as measure of improved ability to self-manage lymphedema and improved quality of life 05/06/23: good goal progress, decreased to 14% 05/20/23: 15% today LTG Duration goal met One Impairment lymphedema right LE Impairment worsens with standing and activity Short Term Goal (STG) Patient to be instructed in all aspects of lymphedema care to include skin care, self- manual lymphatic drainage, elevation, compression, and exercise. 05/06/23: goal met STG Duration goal met Dexigraph Operator Goal (LTG) Patient lymphedema to stabilize (no increase or decrease greater than 1 cm over the course of 1 week), patient to demonstrate independence and compliance with all aspects of lymphedema care including consistent wearing of appropriate compression garments 05/06/23 05/06/23: good goal progress; patient highly compliant with all aspects of lymphedema management. Has ordered new compression bike shorts 05/20/23: partially met. new compression bike shorts did not fit well and inc her edema . Discussed other options including consulting with company. SHown compression options online and encouraged to go to certified fitter vs ordering online. LTG Duration goal met Assessment Summary Assessment Today's visit consisted of assessment of fit and instruction in use of sequential pneumatic pump for kip LE lymphedema. Good fit of compression pants, except proximally at abdomen to large ; patient and educated to use foam insert at abdomen due to improve effectiveness. Patient and demonstrated good understanding and pump was issued. No further PT needs at this time. Patient to be discharged from PT and continue with self-care. Physical Therapy Plan Frequency and Duration Frequency of Treatment 1 visit Duration of treatment (weeks) 2 Plan of Care Start Date 06/21/23 Plan of Care End Date 07/01/23 Therapeutic Interventions Therapeutic Interventions Patient/Caregiver Education, Self-Care/Home Management Modalities Vasopneumatic Devices Discharge Physical Therapy Discharge Reasons Goals Met Next Visit Focus/Plan Next Visit Plan Patient discharged after today 's visit as above Plan of Care Dates Plan of Care Start Date 06/21/23 Plan of Care End Date 07/01/23 Electronically Signed by: Yaneli Bloom, PT 07/02/23 8419 If you are in agreement with this Plan of Care, please return a signed and dated copy. I have reviewed this Plan of Care and certify that the skilled therapy services above are required to meet the patient?s needs. Physician Signature Date Printed Name and Credentials Clinical Instructor Signature Printed Name and Credentials
--- NOTE | 2023-07-01 11:54 | PT.OTRE ---
Current Diagnoses Lymphedema, not elsewhere classified (06/30/23) Visit Care Team Role Provider Type Teresa Espinoza MD Attending Provider Non-Staff Family Provider Primary Care Provider Referring Provider Specialty: Family Practice Address: [address] [place] [address], [phone] Fax: Email: Physical Therapy Re-Evaluation PT-OP-A Visit Information Start: 03/31/23 16:36 Freq: Status: Active Protocol: Document 06/30/23 13:49 [facility] (Rec: 06/30/23 14:33 [facility] [id number]) Out-Patient Physical Therapy Visit Information Visit Information Visit Type Treatment Note Visit Start Time 13:49 Visit Stop Time 14:31 Total Visit Minutes 43 Visit Number 7 Evaluation Information Evaluation Date 04/01/23 Precautions Precautions history cancer osteoporosis PT-OP-B Current Condition Start: 03/31/23 16:36 Freq: Status: Active Protocol: Document 06/30/23 13:49 [facility]AK (Rec: 06/30/23 14:33 [facility] [id number]) Current Condition History of Current Condition Onset Date 2012 Current Complaints right leg lymphedema History of Current Condition Radical hysterectomy , 1 lymph removed, benign in 2012. . Lymphedema occurred pretty much right away but not initially addressed due to chem and radiation. Has been through treatment for lymphedema at [employer] and [facility] that was helpful but has been worsening recently. Then went to accupuncture and that helped some as well. Reports back to work on feet more as well as stress and heat during the summer increased her swelling. Due to work schedule has difficulty attending PT sessions but verbalized understanding of how important to do all she can; states she and will follow- through with all PT recommendations and instruction. Feels she needs further PT and is interested in a lymphedema pump. Lymphedema minimal in am , worsens throughout the day. Wears thompson length shorts especially on work days. Heavier compressions not tolerated. Swelling is from knee to groin and lower abdominal area. Did not bring current compression garments and is not currently wearing any; patient reporting she wasn't going to work and she doesn't like to wear if doesn' t feel the need. Prior Treatments and Tests lymphedema treatment as noted above PT-OP-C Subjective Start: 03/31/23 16:36 Freq: Status: Active Protocol: Document 06/30/23 13:49 [facility] (Rec: 06/30/23 14:33 [facility] [id number]) OP-PT Subjective Patient Comments Patient Comments No new c/o, excited to get pneumatic sequential compression pump. REports called Kezia Espinosa regarding preference for pants sleeve and they agreed to let her try despite their concern about fit. PT-OP-F Manual Assessment Start: 03/31/23 16:36 Freq: Status: Active Protocol: Document 04/01/23 12:33 [facility] (Rec: 04/08/23 14:45 [facility] [id number]) Manual Assessments Soft Tissue Assessment Soft Tissue Mobility Assessment no redness or other discoloration, no skin fibrosis PT-OP-J Posture/Palpation/Skin Start: 03/31/23 16:36 Freq: Status: Active Protocol: Document 04/01/23 12:33 [facility] (Rec: 04/01/23 14:01 [facility] [id number]) Palpation Assessment Location right LE Palpation Findings Edema Palpation Details no palpable fibrosis, no skin color changes or warmth. Skin Assessment Edema Assessment Right Leg Edema Appearance Puffy,Shiny Comments LYmphedema Incisional Assessment Incision Appearance/Comments old scar with fair mobility PT-OP-K Range of Motion Start: 03/31/23 16:36 Freq: Status: Active Protocol: Document 04/01/23 12:33 [facility] (Rec: 04/08/23 14:45 [facility] [id number]) Hip Goniometric Range of Motion Hip Measured in Degrees kip Hip ROM WFL Yes Knee Goniometric Range of Motion Knee Measured in Degrees kip Knee ROM WFL Yes PT-OP-N Lymphedema Start: 03/31/23 16:36 Freq: Status: Active Protocol: Document 05/20/23 14:34 [facility] (Rec: 05/20/23 15:15 [facility] [id number]) Lymphedema Measurements Lower Extremity Circumference Measurements Right Affected MT Heads 21 cm Mid-foot 20.4 cm Medial Malleolus 23.9 cm 10 cm From Medial Malleolus 22.6 cm 20 cm From Medial Malleolus 31.7 cm 30 cm From Medial Malleolus 31.2 cm 40 cm From Medial Malleolus 36.8 cm 50 cm From Medial Malleolus 39.8 cm 60 cm From Medial Malleolus 47.2 cm 70 cm From Medial Malleolus 53.8 cm Knee Joint 36.2 cm Hip 59.3 cm PT-OP-Q Treatments Start: 03/31/23 16:36 Freq: Status: Active Protocol: Document 06/30/23 13:49 [facility] (Rec: 06/30/23 14:33 [facility] [id number]) Lymphedema Treatment Other Other Instruction in use of sequential pneumatic pump Airos with 8 chamber pants sleeves; instructed patient and and did trial, adjusting max pressure to 39 mm Hg due to discomfort in feet and ankles at 45 mm. Good fit except at abdomen; discussed foam options for improving pump effectiveness proximally. They demonstrated good understanding. PT-OP-T Assessment and Plan Start: 03/31/23 16:36 Freq: Status: Active Protocol: Document 06/30/23 13:49 [facility] (Rec: 06/30/23 14:33 [facility] [id number]) Physical Therapy Assessment Goals Three Impairment activity intolerance Impairment increase LE edema with standing for work Short Term Goal (STG) Patient to be instructed in self-management techniques to incorporate into her workday to prevent increase in lymphedema during work. STG Duration goal met Stone Banker Goal (LTG) Patient will be able to stand for full day of work with minimal to no increase in lymphedema 05/06/23: partially met; still some increase by the end of work day or after doing household tasks while on feet. 05/20/23: goal partially met, new compression garment did not fit well and will be consulting with company after discussion with PT today regarding further alternatives LTG Duration goal met Two Impairment lymphedema life impact scale 22% Residential Goal (LTG) Decrease lymphedema life impact scale to no more than 10% as measure of improved ability to self-manage lymphedema and improved quality of life 05/06/23: good goal progress, decreased to 14% 05/20/23: 15% today LTG Duration goal met One Impairment lymphedema right LE Impairment worsens with standing and activity Short Term Goal (STG) Patient to be instructed in all aspects of lymphedema care to include skin care, self- manual lymphatic drainage, elevation, compression, and exercise. 05/06/23: goal met STG Duration goal met Stone Banker Goal (LTG) Patient lymphedema to stabilize (no increase or decrease greater than 1 cm over the course of 1 week), patient to demonstrate independence and compliance with all aspects of lymphedema care including consistent wearing of appropriate compression garments 05/06/23 05/06/23: good goal progress; patient highly compliant with all aspects of lymphedema management. Has ordered new compression bike shorts 05/20/23: partially met. new compression bike shorts did not fit well and inc her edema . Discussed other options including consulting with company. SHown compression options online and encouraged to go to certified fitter vs ordering online. LTG Duration goal met Assessment Summary Assessment Today's visit consisted of assessment of fit and instruction in use of sequential pneumatic pump for kip LE lymphedema. Good fit of compression pants, except proximally at abdomen to large ; patient and educated to use foam insert at abdomen due to improve effectiveness. Patient and demonstrated good understanding and pump was issued. No further PT needs at this time. Patient to be discharged from PT and continue with self-care. Physical Therapy Plan Frequency and Duration Frequency of Treatment 1 visit Duration of treatment (weeks) 2 Plan of Care Start Date 06/21/23 Plan of Care End Date 07/01/23 Therapeutic Interventions Therapeutic Interventions Patient/Caregiver Education, Self-Care/Home Management Modalities Vasopneumatic Devices Discharge Physical Therapy Discharge Reasons Goals Met Next Visit Focus/Plan Next Visit Plan Patient discharged after today 's visit as above
--- NOTE | 2023-07-02 09:41 | PT.OPDS ---
Current Diagnoses Lymphedema, not elsewhere classified (06/30/23) Visit Care Team Role Provider Type Teresa Espinoza MD Attending Provider Non-Staff Family Provider Primary Care Provider Referring Provider Specialty: Family Practice Address: [address] [place] [address], [phone] Fax: Email: Visit Number Visit Number 7 Discharge Summary PT-OP-B Current Condition Start: 03/31/23 16:36 Freq: Status: Active Protocol: Document 06/30/23 13:49 [facility] (Rec: 06/30/23 14:33 [facility] [id number]) Current Condition History of Current Condition Onset Date 2012 Current Complaints right leg lymphedema History of Current Condition Radical hysterectomy , 1 lymph removed, benign in 2012. . Lymphedema occurred pretty much right away but not initially addressed due to chem and radiation. Has been through treatment for lymphedema at [facility] and [facility] that was helpful but has been worsening recently. Then went to accupuncture and that helped some as well. Reports back to work on feet more as well as stress and heat during the summer increased her swelling. Due to work schedule has difficulty attending PT sessions but verbalized understanding of how important to do all she can; states she and will follow- through with all PT recommendations and instruction. Feels she needs further PT and is interested in a lymphedema pump. Lymphedema minimal in am , worsens throughout the day. Wears thompson length shorts especially on work days. Heavier compressions not tolerated. Swelling is from knee to groin and lower abdominal area. Did not bring current compression garments and is not currently wearing any; patient reporting she wasn't going to work and she doesn't like to wear if doesn' t feel the need. Prior Treatments and Tests lymphedema treatment as noted above PT-OP-C Subjective Start: 03/31/23 16:36 Freq: Status: Active Protocol: Document 06/30/23 13:49 [facility] (Rec: 06/30/23 14:33 [facility] [id number]) OP-PT Subjective Patient Comments Patient Comments No new c/o, excited to get pneumatic sequential compression pump. REports called Kezia Espinosa regarding preference for pants sleeve and they agreed to let her try despite their concern about fit. PT-OP-F Manual Assessment Start: 03/31/23 16:36 Freq: Status: Active Protocol: Document 04/01/23 12:33 [facility] (Rec: 04/08/23 14:45 [facility] [id number]) Manual Assessments Soft Tissue Assessment Soft Tissue Mobility Assessment no redness or other discoloration, no skin fibrosis PT-OP-J Posture/Palpation/Skin Start: 03/31/23 16:36 Freq: Status: Active Protocol: Document 04/01/23 12:33 [facility] (Rec: 04/01/23 14:01 [facility] [id number]) Palpation Assessment Location right LE Palpation Findings Edema Palpation Details no palpable fibrosis, no skin color changes or warmth. Skin Assessment Edema Assessment Right Leg Edema Appearance Puffy,Shiny Comments LYmphedema Incisional Assessment Incision Appearance/Comments old scar with fair mobility PT-OP-K Range of Motion Start: 03/31/23 16:36 Freq: Status: Active Protocol: Document 04/01/23 12:33 [facility] (Rec: 04/08/23 14:45 [facility] [id number]) Hip Goniometric Range of Motion Hip kip Hip ROM WFL Yes Knee Goniometric Range of Motion Knee kip Knee ROM WFL Yes PT-OP-N Lymphedema Start: 03/31/23 16:36 Freq: Status: Active Protocol: Document 05/20/23 14:34 [facility] (Rec: 05/20/23 15:15 [facility] [id number]) Lymphedema Measurements Lower Extremity Circumference Measurements Right Affected MT Heads 21 cm Mid-foot 20.4 cm Medial Malleolus 23.9 cm 10 cm From Medial Malleolus 22.6 cm 20 cm From Medial Malleolus 31.7 cm 30 cm From Medial Malleolus 31.2 cm 40 cm From Medial Malleolus 36.8 cm 50 cm From Medial Malleolus 39.8 cm 60 cm From Medial Malleolus 47.2 cm 70 cm From Medial Malleolus 53.8 cm Knee Joint 36.2 cm Hip 59.3 cm PT-OP-T Assessment and Plan Start: 03/31/23 16:36 Freq: Status: Active Protocol: Document 06/30/23 13:49 [facility] (Rec: 06/30/23 14:33 [facility] [id number]) Physical Therapy Assessment Goals Three Impairment activity intolerance Impairment increase LE edema with standing for work Short Term Goal (STG) Patient to be instructed in self-management techniques to incorporate into her workday to prevent increase in lymphedema during work. STG Duration goal met Longterm Goal (LTG) Patient will be able to stand for full day of work with minimal to no increase in lymphedema 05/06/23: partially met; still some increase by the end of work day or after doing household tasks while on feet. 05/20/23: goal partially met, new compression garment did not fit well and will be consulting with [employer] after discussion with PT today regarding further alternatives LTG Duration goal met Two Impairment lymphedema life impact scale 22% Monorail Charger Operator Goal (LTG) Decrease lymphedema life impact scale to no more than 10% as measure of improved ability to self-manage lymphedema and improved quality of life 05/06/23: good goal progress, decreased to 14% 05/20/23: 15% today LTG Duration goal met One Impairment lymphedema right LE Impairment worsens with standing and activity Short Term Goal (STG) Patient to be instructed in all aspects of lymphedema care to include skin care, self- manual lymphatic drainage, elevation, compression, and exercise. 05/06/23: goal met STG Duration goal met Longterm Goal (LTG) Patient lymphedema to stabilize (no increase or decrease greater than 1 cm over the course of 1 week), patient to demonstrate independence and compliance with all aspects of lymphedema care including consistent wearing of appropriate compression garments 05/06/23 05/06/23: good goal progress; patient highly compliant with all aspects of lymphedema management. Has ordered new compression bike shorts 05/20/23: partially met. new compression bike shorts did not fit well and inc her edema . Discussed other options including consulting with [employer]. SHown compression options online and encouraged to go to certified fitter vs ordering online. LTG Duration goal met Assessment Summary Assessment Today's visit consisted of assessment of fit and instruction in use of sequential pneumatic pump for kip LE lymphedema. Good fit of compression pants, except proximally at abdomen to large ; patient and educated to use foam insert at abdomen due to improve effectiveness. Patient and demonstrated good understanding and pump was issued. No further PT needs at this time. Patient to be discharged from PT and continue with self-care. Physical Therapy Plan Frequency and Duration Frequency of Treatment 1 visit Duration of treatment (weeks) 2 Plan of Care Start Date 06/21/23 Plan of Care End Date 07/01/23 Therapeutic Interventions Therapeutic Interventions Patient/Caregiver Education, Self-Care/Home Management Modalities Vasopneumatic Devices Discharge Physical Therapy Discharge Reasons Goals Met Next Visit Focus/Plan Next Visit Plan Patient discharged after today 's visit as above
--- NOTE | 2023-07-02 11:52 | PT.OTRE ---
Current Diagnoses Lymphedema, not elsewhere classified (06/30/23) Visit Care Team Role Provider Type Teresa Espinoza MD Attending Provider Non-Staff Family Provider Primary Care Provider Referring Provider Specialty: Family Practice Address: [address] [place] [address], [phone] Fax: Email: Physical Therapy Re-Evaluation PT-OP-A Visit Information Start: 03/31/23 16:36 Freq: Status: Active Protocol: Document 06/30/23 13:49 [facility] (Rec: 06/30/23 14:33 [facility] [id number]) Out-Patient Physical Therapy Visit Information Visit Information Visit Type Treatment Note Visit Start Time 13:49 Visit Stop Time 14:31 Total Visit Minutes 43 Visit Number 7 Evaluation Information Evaluation Date 04/01/23 Precautions Precautions history cancer osteoporosis PT-OP-B Current Condition Start: 03/31/23 16:36 Freq: Status: Active Protocol: Document 06/30/23 13:49 [facility] (Rec: 06/30/23 14:33 [facility] [id number]) Current Condition History of Current Condition Onset Date 2012 Current Complaints right leg lymphedema History of Current Condition Radical hysterectomy , 1 lymph removed, benign in 2012. . Lymphedema occurred pretty much right away but not initially addressed due to chem and radiation. Has been through treatment for lymphedema at [employer] and [facility] that was helpful but has been worsening recently. Then went to accupuncture and that helped some as well. Reports back to work on feet more as well as stress and heat during the summer increased her swelling. Due to work schedule has difficulty attending PT sessions but verbalized understanding of how important to do all she can; states she and will follow- through with all PT recommendations and instruction. Feels she needs further PT and is interested in a lymphedema pump. Lymphedema minimal in am , worsens throughout the day. Wears thompson length shorts especially on work days. Heavier compressions not tolerated. Swelling is from knee to groin and lower abdominal area. Did not bring current compression garments and is not currently wearing any; patient reporting she wasn't going to work and she doesn't like to wear if doesn' t feel the need. Prior Treatments and Tests lymphedema treatment as noted above PT-OP-C Subjective Start: 03/31/23 16:36 Freq: Status: Active Protocol: Document 06/30/23 13:49 [facility] (Rec: 06/30/23 14:33 [facility] [id number]) OP-PT Subjective Patient Comments Patient Comments No new c/o, excited to get pneumatic sequential compression pump. REports called Kezia Espinosa regarding preference for pants sleeve and they agreed to let her try despite their concern about fit. PT-OP-F Manual Assessment Start: 03/31/23 16:36 Freq: Status: Active Protocol: Document 04/01/23 12:33 [facility] (Rec: 04/08/23 14:45 [facility] [id number]) Manual Assessments Soft Tissue Assessment Soft Tissue Mobility Assessment no redness or other discoloration, no skin fibrosis PT-OP-J Posture/Palpation/Skin Start: 03/31/23 16:36 Freq: Status: Active Protocol: Document 04/01/23 12:33 [facility] (Rec: 04/01/23 14:01 [facility] [id number]) Palpation Assessment Location right LE Palpation Findings Edema Palpation Details no palpable fibrosis, no skin color changes or warmth. Skin Assessment Edema Assessment Right Leg Edema Appearance Puffy,Shiny Comments LYmphedema Incisional Assessment Incision Appearance/Comments old scar with fair mobility PT-OP-K Range of Motion Start: 03/31/23 16:36 Freq: Status: Active Protocol: Document 04/01/23 12:33 [facility] (Rec: 04/08/23 14:45 [facility] [id number]) Hip Goniometric Range of Motion Hip Measured in Degrees kip Hip ROM WFL Yes Knee Goniometric Range of Motion Knee Measured in Degrees kip Knee ROM WFL Yes PT-OP-N Lymphedema Start: 03/31/23 16:36 Freq: Status: Active Protocol: Document 05/20/23 14:34 [facility] (Rec: 05/20/23 15:15 [facility] [id number]) Lymphedema Measurements Lower Extremity Circumference Measurements Right Affected MT Heads 21 cm Mid-foot 20.4 cm Medial Malleolus 23.9 cm 10 cm From Medial Malleolus 22.6 cm 20 cm From Medial Malleolus 31.7 cm 30 cm From Medial Malleolus 31.2 cm 40 cm From Medial Malleolus 36.8 cm 50 cm From Medial Malleolus 39.8 cm 60 cm From Medial Malleolus 47.2 cm 70 cm From Medial Malleolus 53.8 cm Knee Joint 36.2 cm Hip 59.3 cm PT-OP-Q Treatments Start: 03/31/23 16:36 Freq: Status: Active Protocol: Document 06/30/23 13:49 [facility] (Rec: 06/30/23 14:33 [facility] [id number]) Lymphedema Treatment Other Other Instruction in use of sequential pneumatic pump Airos with 8 chamber pants sleeves; instructed patient and and did trial, adjusting max pressure to 39 mm Hg due to discomfort in feet and ankles at 45 mm. Good fit except at abdomen; discussed foam options for improving pump effectiveness proximally. They demonstrated good understanding. PT-OP-T Assessment and Plan Start: 03/31/23 16:36 Freq: Status: Active Protocol: Document 06/30/23 13:49 [facility] (Rec: 06/30/23 14:33 [facility] [id number]) Physical Therapy Assessment Goals Three Impairment activity intolerance Impairment increase LE edema with standing for work Short Term Goal (STG) Patient to be instructed in self-management techniques to incorporate into her workday to prevent increase in lymphedema during work. STG Duration goal met Ice Cutter Goal (LTG) Patient will be able to stand for full day of work with minimal to no increase in lymphedema 05/06/23: partially met; still some increase by the end of work day or after doing household tasks while on feet. 05/20/23: goal partially met, new compression garment did not fit well and will be consulting with company after discussion with PT today regarding further alternatives LTG Duration goal met Two Impairment lymphedema life impact scale 22% Group Home Goal (LTG) Decrease lymphedema life impact scale to no more than 10% as measure of improved ability to self-manage lymphedema and improved quality of life 05/06/23: good goal progress, decreased to 14% 05/20/23: 15% today LTG Duration goal met One Impairment lymphedema right LE Impairment worsens with standing and activity Short Term Goal (STG) Patient to be instructed in all aspects of lymphedema care to include skin care, self- manual lymphatic drainage, elevation, compression, and exercise. 05/06/23: goal met STG Duration goal met Ice Cutter Goal (LTG) Patient lymphedema to stabilize (no increase or decrease greater than 1 cm over the course of 1 week), patient to demonstrate independence and compliance with all aspects of lymphedema care including consistent wearing of appropriate compression garments 05/06/23 05/06/23: good goal progress; patient highly compliant with all aspects of lymphedema management. Has ordered new compression bike shorts 05/20/23: partially met. new compression bike shorts did not fit well and inc her edema . Discussed other options including consulting with company. SHown compression options online and encouraged to go to certified fitter vs ordering online. LTG Duration goal met Assessment Summary Assessment Today's visit consisted of assessment of fit and instruction in use of sequential pneumatic pump for kip LE lymphedema. Good fit of compression pants, except proximally at abdomen to large ; patient and educated to use foam insert at abdomen due to improve effectiveness. Patient and demonstrated good understanding and pump was issued. No further PT needs at this time. Patient to be discharged from PT and continue with self-care. Physical Therapy Plan Frequency and Duration Frequency of Treatment 1 visit Duration of treatment (weeks) 2 Plan of Care Start Date 06/21/23 Plan of Care End Date 07/01/23 Therapeutic Interventions Therapeutic Interventions Patient/Caregiver Education, Self-Care/Home Management Modalities Vasopneumatic Devices Discharge Physical Therapy Discharge Reasons Goals Met Next Visit Focus/Plan Next Visit Plan Patient discharged after today 's visit as above
== END 2023-09-11 10:33 | disposition home or self-care (01) ==
LOC: PHYS 13:45
PROVIDERS: Family Provider Family Medicine; PCP Family Medicine; Referring Provider Family Medicine; Visit Provider Family Medicine
DX: I89.0 Lymphedema, not elsewhere classified (principal)
CPT/HCPCS: 97016; 97110; 97140; 97162; 97535